=== PATIENT | female | born 1995 | race Caucasian/White ===

== ENCOUNTER 2018-10-24 13:20 | Outpatient (REF) | payer OTHER, SELFPAY ==
[2018-10-27 13:52] LABS: Chlamydia Result Negative; GC Result Negative; Specimen Description CERVIX
== END 2018-10-24 13:40 ==
LOC: LBN 13:20
PROVIDERS: PCP Family Medicine; Visit Provider Nurse Practitioner Women's Health
DX: Z11.3 Encounter for screening for infections with a predominantly sexual mode of transmission (principal)
CPT/HCPCS: 87491; 87591

== ENCOUNTER 2019-10-30 10:54 | Outpatient (REF) | payer OTHER, SELFPAY ==
--- NOTE | 2019-10-30 10:30 | PAPFT_PTH ---
PATIENT: Xenia Zavala LOC: [facility] U#:[id number] AGE/SX: 24/F ROOM: RE10/30/[address]: ALEX Rojas : 1995 BED: DIS: 10/30/2019 SPEC #: [id number] RECD: 10/30/19 12:49 STATUS: YAMILA REQ #: [id number] ANH: 10/30/19 10:[address]: Denise Lozano DEPT: [facility] Cytology RECD BY: Nahomi Richardson ENTERED: 10/30/19 12:49 SP TYPE: PAPFT CALI DR: Lui Parish MD Tissues: 1 - CX/ENDOCX FOR PAP SMEARS Procedures: PAP THIN PREP/[facility] Screening Comments: [id number]
[2019-11-02 13:15] LABS: Chlamydia Result Negative (Negative); GC Result Negative (Negative)
== END 2019-10-30 11:14 ==
LOC: LBN 10:54
PROVIDERS: PCP Family Medicine; Visit Provider Nurse Practitioner Family
DX: Z11.3 Encounter for screening for infections with a predominantly sexual mode of transmission (principal); Z12.4 Encounter for screening for malignant neoplasm of cervix
CPT/HCPCS: 87491; 87591; 88142

== ENCOUNTER 2020-10-31 09:38 | Outpatient (REF) | payer OTHER, SELFPAY ==
--- NOTE | 2020-10-31 09:00 | PAPFT_PTH ---
PATIENT: Xenia Zavala LOC: [facility] U#:[id number] AGE/SX: 25/F ROOM: RE10/31/[address]: ALEX Rojas : 1995 BED: DIS: 10/31/2020 SPEC #: [id number] RECD: 10/31/20 12:55 STATUS: YAMILA REQ #: [id number] ANH: 10/31/20 09:[address]: Denise Lozano DEPT: [facility] Cytology RECD BY: Nahomi Richardson ENTERED: 10/31/20 12:55 SP TYPE: PAPFT CALI DR: Lui Parish MD Tissues: 1 - CX/ENDOCX FOR PAP SMEARS Procedures: PAP THIN PREP/[facility] Screening Comments: [id number]
== END 2020-10-31 09:58 ==
LOC: LBN 09:38
PROVIDERS: PCP Family Medicine; Visit Provider Nurse Practitioner Family
DX: Z12.4 Encounter for screening for malignant neoplasm of cervix (principal)
CPT/HCPCS: 88142

== ENCOUNTER 2022-05-28 15:09 | Outpatient (REF) | payer BC, SELFPAY ==
[2022-05-30 15:09] LABS: Chlamydia Result Negative (Negative); GC Result Negative (Negative)
== END 2022-05-28 15:10 | disposition home or self-care (01) ==
LOC: LBN 15:09
PROVIDERS: PCP Family Medicine; Visit Provider Nurse Practitioner Family
DX: R30.0 Dysuria (principal); Z11.3 Encounter for screening for infections with a predominantly sexual mode of transmission
CPT/HCPCS: 87491; 87591; 87086